=== PATIENT | female | born 1965 | race Hispanic/Latino ===

== ENCOUNTER 2017-08-27 20:30 | Inpatient (IN) | payer OTHER, MEDICARE ==
[~2017-08-27] VITALS: Ht 170.2 cm; Wt 81.3 kg
[~2017-08-27 20:30] MED LIST: ADV500 IH; ASPI-1012 PO; ATOR40TA69 PO; AZIT500T PO; CETI10TA57 PO; DILT180C63 PO; FLUT16H NASAL; ISOS20TA7 PO; LOSA50TA37 PO; METF500T6 PO; MONT10TA24 PO; NAPR-1023 PO; NITR0.4T50 SL; NYST15CR TP; PRED20TA3 PO; TRAZ-147 PO
[2017-08-27 20:48] LABS: BASOPHILS % (AUTO) 0.5 % (0.0-5.0); EOSINOPHILS % (AUTO) 1.2 % (0.0-8.0); HEMATOCRIT 39.9 % (36-48); LYMPHOCYTES % (AUTO) 36.5 % (21.0-51.0); MEAN CORPUSCULAR HEMOGLOBIN 30.4 pg (27.0-33.0); MEAN CORPUSCULAR HGB CONC 35.2 g/dL (32.0-36.0); MEAN CORPUSCULAR VOLUME 86.4 fL (79-99); NEUTROPHILS % (AUTO) 55.8 % (40.0-77.0); PLATELET COUNT (AUTO) 221 K/uL (130-400); RED BLOOD CELL COUNT(AUTO) 4.61 MIL/uL (4.00-5.50); RED CELL DISTRIBUTION WIDTH 13.1 % (11.0-15.5); WHITE BLOOD COUNT (AUTO) 7.4 K/uL (4.8-10.8)
[2017-08-27 21:02] LABS: INR 0.98 (0.85-1.15); PARTIAL THROMBOPLASTIN TIME 26.6 SEC (26.3-35.5); PROTHROMBIN TIME 10.3 SEC (9.6-11.6)
[2017-08-27 21:03] LABS: CREATININE 0.9 mg/dL (0.5-1.5); POTASSIUM 3.5 mmol/L (3.5-5.1)
[2017-08-27 21:17] LABS: ALBUMIN 3.7 g/dL (3.5-5.0); BILIRUBIN,TOTAL 0.3 mg/dL (0.2-1.0); CREATINE KINASE MB 1.2 ng/mL (0.5-3.6); TOTAL PROTEIN, SERUM 7.3 g/dL (6.0-8.3)
[2017-08-27] MEDS ORDERED: ASPIRIN 325 MG TABLET ONE (22:59)
[2017-08-27] MEDS ORDERED: GLUCAGON 1MG KIT 1 MG ML IM PRN (23:30)
[2017-08-27] MEDS: FAMOTIDINE 20MG TAB 20 MG TAB PO SCH (23:30)
[2017-08-27] MEDS ORDERED: DEXTROSE 50%-WATER 50 ML DISP.SYRIN IV PRN (23:30)
[2017-08-28] MEDS ORDERED: CLONIDINE HCL 0.1 MG TABLET PO PRN (00:15)
[2017-08-28] MEDS ORDERED: HYDRALAZINE HCL 20 MG/ML VIAL IM PRN (00:15)
[2017-08-28 06:28] LABS: CHOLESTEROL 222 mg/dL (<200); HDL CHOLESTEROL 39 mg/dL (35-85); LDL DIRECT 145 mg/dL (0-99); TRIGLYCERIDES 268 mg/dL (30-200)
[2017-08-28] MEDS: INSULIN LISPRO 100 UNIT/ML 3ML SQ SCH ×4 (07:30→21:00)
[2017-08-28] MEDS: METFORMIN HCL 500 MG TABLET PO SCH ×2 (08:00→17:02)
[2017-08-28] MEDS ORDERED: ENOXAPARIN SODIUM 40 MG/0.4 ML SYRINGE SQ ONE (08:00)
[2017-08-28] MEDS: NAPROXEN 500 MG TABLET PO SCH ×2 (09:00→22:17)
[2017-08-28] MEDS ORDERED: INSULIN DETEMIR 10ML 100 UNIT/ML 10ML SQ SCH (09:00)
[2017-08-28] MEDS ORDERED: FLUTICASONE PROPIONATE 50MCG/SPRAY 16 GM BOTTLE NS SCH (09:00)
[2017-08-28] MEDS: LOSARTAN 50 MG TABLET PO SCH (09:00)
[2017-08-28] MEDS: ISOSORBIDE MONONITRATE 20 MG TABLET PO SCH (09:00)
[2017-08-28] MEDS ORDERED: ASPIRIN 325MG EC TAB 325 MG TABLET.DR PO SCH (09:00)
[2017-08-28] MEDS: DILTIAZEM HCL 180 MG CAP.SR.24H PO SCH ×2 (09:00→20:27)
[2017-08-28] MEDS: PREDNISONE 20 MG TABLET PO SCH (09:00)
[2017-08-28] MEDS: ENOXAPARIN SODIUM 40 MG/0.4 ML SYRINGE SQ SCH (09:00)
[2017-08-28] MEDS: CETIRIZINE HCL 5 MG TABLET PO SCH (09:00)
[2017-08-28] MEDS ORDERED: ASPIRIN 325 MG TABLET PO SCH (09:00)
[2017-08-28] MEDS: MONTELUKAST SODIUM 10 MG TAB PO SCH (09:00)
[2017-08-28] MEDS ORDERED: INSULIN GLARGINE 100 UNITS/ML 10 ML VIAL SQ SCH (09:02)
[2017-08-28 10:00] VITALS: BP 140/77
[2017-08-28] MEDS ORDERED: CLON0.1T PO (10:12)
[2017-08-28] MEDS ORDERED: SERT100T12 PO (10:12)
[2017-08-28] MEDS ORDERED: FOLI1TAB15 PO (10:12)
[2017-08-28] MEDS ORDERED: LINA5TAB PO (10:12)
[2017-08-28] MEDS ORDERED: BUSP10TA3 PO (10:12)
[2017-08-28] MEDS ORDERED: VALS320T15 PO (10:12)
[2017-08-28] MEDS ORDERED: ALBUTEROL SULFATE 0.083% 2.5 MG/3 ML INH IH ONE (11:32)
[2017-08-28] MEDS: ALBUTEROL SULFATE 0.083% 2.5 MG/3 ML INH IH SCH ×2 (11:39→18:20)
[2017-08-28 14:00] VITALS: BP 138/76
[2017-08-28 16:30] VITALS: BP 148/66
[2017-08-28] MEDS: BUDESONIDE 0.5 MG/2 ML INH IH SCH (18:33)
[2017-08-28 20:00] VITALS: BP 140/87
[2017-08-28] MEDS: FOLIC ACID 1 MG TABLET PO SCH (20:27)
[2017-08-28] MEDS: FLUTICASONE PROPIONATE 50MCG/SPRAY 16 GM BOTTLE NS SCH (20:29)
[2017-08-28] MEDS ORDERED: ATORVASTATIN CALCIUM 40 MG TABLET PO SCH (21:00)
[2017-08-28] MEDS ORDERED: TRAZODONE HCL 100 MG TABLET PO SCH (21:00)
[2017-08-28] MEDS: FAMOTIDINE 20MG TAB 20 MG TAB PO SCH (22:25)
[2017-08-28 23:22] VITALS: BP 132/81
[2017-08-29 03:40] VITALS: BP 110/66
[2017-08-29 04:30] LABS: HEMATOCRIT 37.9 % (36-48); MEAN CORPUSCULAR HEMOGLOBIN 30.8 pg (27.0-33.0); MEAN CORPUSCULAR HGB CONC 35.1 g/dL (32.0-36.0); MEAN CORPUSCULAR VOLUME 87.6 fL (79-99); NUCLEATED RED BLOOD CELLS 0.2 % (0.0-0.19); PLATELET COUNT (AUTO) 185 K/uL (130-400); RED BLOOD CELL COUNT(AUTO) 4.32 MIL/uL (4.00-5.50); RED CELL DISTRIBUTION WIDTH 13.5 % (11.0-15.5); WHITE BLOOD COUNT (AUTO) 5.4 K/uL (4.8-10.8)
[2017-08-29 04:53] LABS: CREATININE 0.8 mg/dL (0.5-1.5); POTASSIUM 3.3 mmol/L (3.5-5.1)
[2017-08-29 05:07] LABS: BAND NEUTROPHILS % (MANUAL) 4 % (0-2); EOSINOPHILS % (MANUAL) 2 % (1-6); LYMPHOCYTES % (MANUAL) 26 % (22-44); MONOCYTES % (MANUAL) 8 % (2-9); SEGMENTED NEUTROPHILS % 60 % (40-70)
[2017-08-29 05:08] LABS: MAN.DIFF COMMENT-IMPRESSION MANUAL DIFFERENTIAL; PLATELET MORPHOLOGY COMMENT ADEQUATE
[2017-08-29] MEDS: ALBUTEROL SULFATE 0.083% 2.5 MG/3 ML INH IH SCH ×4 (06:24→19:01)
[2017-08-29] MEDS: BUDESONIDE 0.5 MG/2 ML INH IH SCH (06:24)
[2017-08-29] MEDS: INSULIN LISPRO 100 UNIT/ML 3ML SQ SCH ×3 (06:34→16:50)
[2017-08-29 07:59] VITALS: BP 135/71
[2017-08-29] MEDS ORDERED: ASPIRIN 81 MG EC TAB PO SCH (09:00)
[2017-08-29] MEDS ORDERED: CLOPIDOGREL BISULFATE 75 MG TAB PO SCH (09:00)
[2017-08-29] MEDS: FLUTICASONE PROPIONATE 50MCG/SPRAY 16 GM BOTTLE NS SCH (09:41)
[2017-08-29] MEDS: METFORMIN HCL 500 MG TABLET PO SCH ×2 (09:43→16:51)
[2017-08-29] MEDS: LOSARTAN 50 MG TABLET PO SCH (09:44)
[2017-08-29] MEDS: DILTIAZEM HCL 180 MG CAP.SR.24H PO SCH (09:44)
[2017-08-29] MEDS: NAPROXEN 500 MG TABLET PO SCH (09:44)
[2017-08-29] MEDS: ISOSORBIDE MONONITRATE 20 MG TABLET PO SCH (09:44)
[2017-08-29] MEDS: FOLIC ACID 1 MG TABLET PO SCH (09:44)
[2017-08-29] MEDS: PREDNISONE 20 MG TABLET PO SCH (09:44)
[2017-08-29] MEDS: MONTELUKAST SODIUM 10 MG TAB PO SCH (09:45)
[2017-08-29] MEDS: CETIRIZINE HCL 5 MG TABLET PO SCH (09:45)
[2017-08-29] MEDS: ENOXAPARIN SODIUM 40 MG/0.4 ML SYRINGE SQ SCH (09:46)
[2017-08-29 12:00] VITALS: BP 116/62
[2017-08-29 16:00] VITALS: BP 123/56
[2017-08-29] MEDS ORDERED: INSULIN LISPRO 100 UNIT/ML 3ML SQ ONE (16:46)
== END 2017-08-29 19:20 | disposition home or self-care (01) | DRG 69 ==
LOC: EDH 20:30 → EDHIP 22:41 → 2AH 08-28 13:34
PROVIDERS: ADMIT Family Medicine; ATTEND Family Medicine
DX: G45.9 Transient cerebral ischemic attack, unspecified (principal); E66.9 Obesity, unspecified; E78.5 Hyperlipidemia, unspecified; G43.909 Migraine, unspecified, not intractable, without status migrainosus; I10 Essential (primary) hypertension; I25.10 Atherosclerotic heart disease of native coronary artery without angina pectoris; J45.909 Unspecified asthma, uncomplicated; Z83.3 Family history of diabetes mellitus; Z95.1 Presence of aortocoronary bypass graft; Z88.8 Allergy status to other drugs, medicaments and biological substances
CPT/HCPCS: 36415; 70450; 70544; 70551; 80048; 80053; 80061; 82550; 82553; 82948; 84484; 85025; 85610; 85730; 93005; 93306; 93880; 94640; 94664; J1650; J1815

== ENCOUNTER → 2020-09-16 | Outpatient (CLI) | payer OTHER, MEDICARE ==
[~2020-09-16] VITALS: Ht 154.9 cm; Wt 78.9 kg
[~2020-09-16] MED LIST changes: -AZIT500T PO; +BUSP10TA3 PO; +CLON0.1T PO; +FOLI1TAB15 PO; -ISOS20TA7 PO; +ISOS20TA85 PO; +LINA5TAB PO; -LOSA50TA37 PO; +LOSA50TA64 PO; +METF-444 PO; -METF500T6 PO; -MONT10TA24 PO; +MONT10TA32 PO; +REGADENOSON 0.4 MG/5 ML PF SYG IVP SCH; +SERT-440 PO; -TRAZ-147 PO; +TRAZ-187 PO; +VALS320T16 PO
== END | disposition home or self-care (01) ==
LOC: SHCH 08:37
PROVIDERS: ATTEND Internal Medicine Cardiovascular Disease
DX: I25.10 Atherosclerotic heart disease of native coronary artery without angina pectoris (principal)
CPT/HCPCS: 78452; 93017; 96374; A9500 ×2

== ENCOUNTER → 2022-04-24 | Outpatient (CLI) | payer OTHER, MEDICARE ==
[~2022-04-24] MED LIST changes: +MONT-39 PO; -MONT10TA32 PO; -NYST15CR TP; +NYST15CR39 TP; -REGADENOSON 0.4 MG/5 ML PF SYG IVP SCH
== END | disposition home or self-care (01) ==
LOC: RAH 10:20
PROVIDERS: ATTEND Internal Medicine Gastroenterology
DX: R11.0 Nausea (principal); R10.13 Epigastric pain
CPT/HCPCS: 78264; A9541

== ENCOUNTER → 2022-05-24 | Outpatient (CLI) | payer OTHER, MEDICARE ==
[2022-05-24 12:30] LABS: ALBUMIN 3.8 g/dL (3.5-5.0); CREATININE 0.9 mg/dL (0.5-1.5); TOTAL PROTEIN, SERUM 7.3 g/dL (6.0-8.3)
== END | disposition home or self-care (01) ==
LOC: LAB 08:58
PROVIDERS: ATTEND Physician Assistant
DX: I25.10 Atherosclerotic heart disease of native coronary artery without angina pectoris (principal); I10 Essential (primary) hypertension
CPT/HCPCS: 36415; 80053; 80061

== ENCOUNTER → 2022-09-30 | Outpatient (CLI) | payer OTHER, MEDICARE | END | disposition home or self-care (01) | LOC: SHCH 08:47 | PROVIDERS: ATTEND Internal Medicine Cardiovascular Disease | DX: I11.9 Hypertensive heart disease without heart failure (principal); R06.00 Dyspnea, unspecified | CPT/HCPCS: 93306 ==

== ENCOUNTER → 2022-10-02 | Outpatient (CLI) | payer OTHER, MEDICARE ==
[~2022-10-02] MED LIST changes: +REGADENOSON 0.4 MG/5 ML PF SYG IVP ONE
== END | disposition home or self-care (01) ==
LOC: SHCH 07:31
PROVIDERS: ATTEND Internal Medicine Cardiovascular Disease
DX: R06.02 Shortness of breath (principal); I48.0 Paroxysmal atrial fibrillation; E78.5 Hyperlipidemia, unspecified; I10 Essential (primary) hypertension; E11.9 Type 2 diabetes mellitus without complications; I25.10 Atherosclerotic heart disease of native coronary artery without angina pectoris; Z95.1 Presence of aortocoronary bypass graft; Z79.899 Other long term (current) drug therapy
CPT/HCPCS: 78452; 96374; 93017; J2785; A9500 ×2

== ENCOUNTER → 2022-10-03 | Outpatient (CLI) | payer OTHER, MEDICARE ==
[2022-10-03 12:42] LABS: MAGNESIUM 2.2 mg/dL (1.80-2.40)
== END | disposition home or self-care (01) ==
LOC: RAH 09:43
PROVIDERS: ATTEND Internal Medicine
DX: N60.01 Solitary cyst of right breast (principal); I48.0 Paroxysmal atrial fibrillation; E78.5 Hyperlipidemia, unspecified
CPT/HCPCS: 76641; 83735; 83880; 36415; J2785

== ENCOUNTER → 2022-10-20 | Outpatient (CLI) | payer OTHER, MEDICARE ==
[~2022-10-20] MED LIST changes: -REGADENOSON 0.4 MG/5 ML PF SYG IVP ONE
== END | disposition home or self-care (01) ==
LOC: RAH 10:00
PROVIDERS: ATTEND Internal Medicine
DX: R92.2 Inconclusive mammogram (principal); N64.89 Other specified disorders of breast
CPT/HCPCS: 77065

== ENCOUNTER 2023-01-21 15:13 | Emergency (ER) | payer OTHER, MEDICARE ==
[~2023-01-21] VITALS: Ht 154.9 cm; Wt 71.2 kg
[2023-01-21 15:57] LABS: BASOPHILS # (AUTO) 0.03 K/uL (0.00-0.20); BASOPHILS % (AUTO) 0.5 % (0.0-5.0); EOSINOPHILS # (AUTO) 0.01 K/uL (0.00-0.70); EOSINOPHILS % (AUTO) 0.2 % (0.0-8.0); HEMATOCRIT 44.4 % (36-48); IMMATURE GRANULOCYTE ABSOLUTE 0.01 K/uL (0-1); LYMPHOCYTES # (AUTO) 1.9 K/uL (1.0-4.8); LYMPHOCYTES % (AUTO) 30.5 % (21.0-51.0); MEAN CORPUSCULAR HEMOGLOBIN 29.3 pg (27.0-33.0); MEAN CORPUSCULAR VOLUME 91.7 fL (79-99); MONOCYTES # (AUTO) 0.3 K/uL (0.1-1.0); MONOCYTES % (AUTO) 5.2 % (3.0-13.0); NEUTROPHILS # (AUTO) 3.9 K/uL (1.8-7.7); NEUTROPHILS % (AUTO) 63.4 % (40.0-77.0); PLATELET COUNT (AUTO) 245 K/uL (130-400); RED BLOOD CELL COUNT(AUTO) 4.84 MIL/uL (4.00-5.50); RED CELL DISTRIBUTION WIDTH 13.2 % (11.0-15.5); WHITE BLOOD COUNT (AUTO) 6.1 K/uL (4.8-10.8)
[2023-01-21 15:58] LABS: ADD UA MICROSCOPIC YES; APPEARANCE,URINE CLEAR (CLEAR); BILIRUBIN,URINE NEGATIVE (NEGATIVE); COLOR,URINE YELLOW (YELLOW); GLUCOSE, URINE (UA) NEGATIVE (NEGATIVE); KETONES,URINE NEGATIVE (NEGATIVE); LEUKOCYTE ESTERASE ,URINE NEGATIVE Leu/uL (NEGATIVE); NITRATE,URINE NEGATIVE (NEGATIVE); PROTEIN,URINE 20 mg/dL (NEGATIVE); UROBILINOGEN,URINE 0.2 mg/dL (0.2-1.0)
[2023-01-21 16:00] LABS: BACTERIA,URINE RARE /HPF (None Seen); MUCUS,URINE FEW LPF (None Seen); SQUAMOUS EPITHELIAL CELL,UR RARE /HPF (0-2); WBC,URINE 0-1 /HPF (0-1)
[2023-01-21 16:08] LABS: CREATININE 1.1 mg/dL (0.5-1.5); POTASSIUM 4.2 mmol/L (3.5-5.1)
[2023-01-21 16:09] LABS: INR 0.94 (0.85-1.15); PROTHROMBIN TIME 10.9 SEC (9.6-11.6)
[2023-01-21 16:12] LABS: ALBUMIN 4.1 g/dL (3.5-5.0); BILIRUBIN,TOTAL 0.3 mg/dL (0.2-1.0); MAGNESIUM 2.4 mg/dL (1.80-2.40); TOTAL PROTEIN, SERUM 7.5 g/dL (6.0-8.3)
[2023-01-21] MEDS ORDERED: IOHEXOL 350 MG/ML 100ML INFUS..BTL IV ONE (16:50)
[2023-01-21] MEDS ORDERED: ALTEPLASE 100MG 1 VIAL IVP ONE (17:00)
[2023-01-21] MEDS ORDERED: ONDANSETRON 4MG INJ ONE (18:12)
[2023-01-21] MEDS ORDERED: ONDANSETRON 4MG INJ IVP ONE (18:30)
[2023-01-21] MEDS ORDERED: ACETAMINOPHEN 325 MG TAB ONE (20:07)
[2023-01-21] MEDS ORDERED: ACETAMINOPHEN 325 MG TAB PO ONE (20:30)
[2023-01-21 23:00] VITALS: BP 152/65; PULSE 61; RESP 13; O2SAT 99
== END 2023-01-21 23:41 | disposition short-term general hospital (02) ==
LOC: EDH 15:13
DX: I63.9 Cerebral infarction, unspecified (principal); Z79.82 Long term (current) use of aspirin; Z79.84 Long term (current) use of oral hypoglycemic drugs; Z79.899 Other long term (current) drug therapy
CPT/HCPCS: 99291; 70496; 37195; 96374; 71045; 83735; 84484; 80053; 85025; 85610; 85730; 82948; 81001; 36415; 99292; 93005; 70498; 70450; J2997; J2405; Q9967; 51702; 96375

== ENCOUNTER 2023-07-19 20:11 | Emergency (ER) | payer OTHER, MEDICARE ==
[~2023-07-19] VITALS: Ht 154.9 cm; Wt 66.2 kg
[2023-07-19] MEDS: DEXTROSE 50%-WATER 50 ML DISP.SYRIN IV ONE (20:30)
[2023-07-19 20:43] LABS: BASOPHILS # (AUTO) 0.03 K/uL (0.00-0.20); BASOPHILS % (AUTO) 0.3 % (0.0-5.0); EOSINOPHILS # (AUTO) 0.06 K/uL (0.00-0.70); EOSINOPHILS % (AUTO) 0.7 % (0.0-8.0); IMMATURE GRANULOCYTE ABSOLUTE 0.02 K/uL (0-1); LYMPHOCYTES # (AUTO) 2.6 K/uL (1.0-4.8); LYMPHOCYTES % (AUTO) 29.4 % (21.0-51.0); MEAN CORPUSCULAR HEMOGLOBIN 29.2 pg (27.0-33.0); MEAN CORPUSCULAR VOLUME 88.5 fL (79-99); MONOCYTES # (AUTO) 0.6 K/uL (0.1-1.0); MONOCYTES % (AUTO) 6.9 % (3.0-13.0); NEUTROPHILS # (AUTO) 5.4 K/uL (1.8-7.7); NEUTROPHILS % (AUTO) 62.5 % (40.0-77.0); PLATELET COUNT (AUTO) 177 K/uL (130-400); RED BLOOD CELL COUNT(AUTO) 4.52 MIL/uL (4.00-5.50); RED CELL DISTRIBUTION WIDTH 13.4 % (11.0-15.5); WHITE BLOOD COUNT (AUTO) 8.7 K/uL (4.8-10.8)
[2023-07-19 20:51] LABS: CREATININE 1.2 mg/dL (0.5-1.5); POTASSIUM 3.2 mmol/L (3.5-5.1)
[2023-07-19 20:56] LABS: ALBUMIN 3.7 g/dL (3.5-5.0); BILIRUBIN,TOTAL 0.4 mg/dL (0.2-1.0); TOTAL PROTEIN, SERUM 6.6 g/dL (6.0-8.3)
[2023-07-19] MEDS ORDERED: eliquis (20:58)
[2023-07-19] MEDS ORDERED: IOHEXOL-350 75 ML VIAL IV ONE (21:05)
[2023-07-19 23:07] VITALS: BP 122/75; PULSE 64; RESP 16; O2SAT 99
== END 2023-07-19 23:40 | disposition short-term general hospital (02) ==
LOC: EDH 20:11
DX: I63.9 Cerebral infarction, unspecified (principal); E11.9 Type 2 diabetes mellitus without complications; E78.00 Pure hypercholesterolemia, unspecified; I10 Essential (primary) hypertension; Z79.01 Long term (current) use of anticoagulants
CPT/HCPCS: 99285; 70450; 96360; 71045; 80053; 85025; 82948; 36415; 70496; 70498; 93005; J7070; Q9967